=== PATIENT | male | born 1955 | race Caucasian/White ===

== ENCOUNTER → 2016-12-13 | Outpatient (CLI) | payer SELFPAY | END | disposition home or self-care (01) | LOC: PCVCIMAG 14:23 | PROVIDERS: ATTEND Nuclear Medicine Nuclear Cardiology | DX: I70.212 Atherosclerosis of native arteries of extremities with intermittent claudication, left leg (principal); I77.9 Disorder of arteries and arterioles, unspecified; I10 Essential (primary) hypertension; E78.00 Pure hypercholesterolemia, unspecified; E13.8 Other specified diabetes mellitus with unspecified complications; Z95.820 Peripheral vascular angioplasty status with implants and grafts | CPT/HCPCS: 93925; G0463 ==

== ENCOUNTER → 2016-12-16 | Outpatient (CLI) | payer SELFPAY ==
[~2016-12-16] MED LIST: ASPIRIN 325 MG TABLET ONE; CLOPIDOGREL BISULFATE 75 MG TABLET ONE; DIAZEPAM 10 MG TABLET. ONE; EPTIFIBATIDE BOLUS 2,000 MCG/ML 10ML VIAL. IV ONE; HEPARIN SODIUM 5,000 UNIT/ML VIAL for PCVC. ONE; IODIXANOL 270 MG/ML 100 ML VIAL. ONE; IV NORMAL SALINE 1000ML BAG 1,000 ML ONE; IV NORMAL SALINE 500ML BAG 0 ML ONE; LIDOCAINE 1% Multi-Dose 20 ML VIAL. ONE; MIDAZOLAM HCL/PF 2 MG/2 ML VIAL. ONE; fentaNYL PF VIAL 100 MCG/2 ML VIAL ONE; hydrALAZINE 20 MG/ML VIAL. ONE
--- NOTE | 2016-12-16 18:16 | PCVCINTER ---
EXAM: 1. AORTOGRAM AND BILATERAL LOWER EXTREMITY RUNOFF ANGIOGRAM 2. BILATERAL RENAL ANGIOGRAPHY 3. LEFT SUPERFICIAL FEMORAL ARTERY STENT PLACEMENT. 4. DRUG COATED BALLOON ANGIOPLASTY LEFT SUPERFICIAL FEMORAL ARTERY. 5. RIGHT EXTERNAL ILIAC ARTERY STENT PLACEMENT. 6. LEFT EXTERNAL ILIAC ARTERY STENT PLACEMENT. INDICATION: Peripheral arterial disease. Coronary artery disease. Nonhealing ulcer right lower extremity. Hypertension. Renal atherosclerosis. PROCEDURE: Procedure and risks of angiography intervention is appropriate including limb loss stroke and were discussed with the patient's family and consent obtained. The patient's right groin was prepped abnormal sterile fashion. IV conscious sedation was used to procedure with appropriate monitoring for 90 minutes. Ultrasound was used to interrogate the right groin and showed the right common femoral artery to be patent. A permanent spot film was obtained. Under ultrasound guidance access into the right common femoral artery was obtained and a 5 Ecuadorean sheath was placed. Through this a 5 Ecuadorean flush catheter was placed into the abdominal aorta at the level of the renal arteries and AP aortogram was performed. Catheter was positioned at the aortic bifurcation and both oblique views of the pelvis were obtained. Catheter was positioned into the right external iliac artery and right leg runoff angiography was performed. Catheter was exchanged for a visceral catheter was placed into the right renal arteries and right renal angiograms obtained. Catheter was placed into the the left renal arteries and left renal angiograms were obtained. Catheter was advanced to the level of the left external iliac artery and left leg runoff angiography was obtained. Patient was given 4500 units of heparin. Stent placement across the areas of high-grade stenosis in the right external iliac artery was carried out with a 8 x 30 Smart control stent with subsequent dilatation to 7 mm mm. Stent placement across the areas of high-grade stenosis in the left external iliac artery was carried out with a 8 x 40 Smart control stent with subsequent dilatation to 7.0 mm. A 6 Ecuadorean crossover sheath was placed via the right groin to the level of the left common femoral artery. Area of occlusion in the left superficial femoral artery was carefully crossed with a wire and an outback catheter. Stent placement across the areas of high-grade stenosis in the left superficial femoral was carried out with a 6 x 100 Smart control stent with subsequent dilatation to 5.0 mm. Following this drug coated balloon angioplasty of the left superficial femoral was carried out with a [employer] catheter. Follow-up angiogram was performed. Catheters and wires removed. Sheath was removed and hemostasis obtained using the Exoseal device. No immediate complications. FINDINGS: Aortogram: There is one right and one left renal artery. Moderate plaque infrarenal abdominal aorta without significant stenosis. Pelvis: Mild plaque right and left common iliac arteries without significant stenosis. The right and left internal iliac arteries are patent at their origins. 90% stenosis proximal right external iliac artery. 90% stenosis mid left external iliac artery. Right renal artery: Mild plaque proximal vessel does not cause significant stenosis. No branch vessel stenosis. Left renal artery: Mild plaque proximal vessel does not cause significant stenosis. No branch vessel stenosis. Right leg: Common femoral and profunda femoral arteries are patent. Superficial femoral artery including the stent throughout the mid vessel maintaining good patency. Popliteal artery is patent. Three-vessel runoff into the foot. Left leg: Common femoral and profunda femoral arteries are patent. Mild stenosis proximal superficial femoral artery. Occlusion throughout the mid superficial femoral artery. Refilling of the distal SFA. Popliteal artery is patent. Three-vessel runoff into the foot. Right external iliac artery: Following procedure as above vessel shows good patency. Left external iliac artery: Following procedure as above vessel shows good patency. Left superficial femoral artery: Following procedure as above vessel shows good patency. IMPRESSION: High-grade stenosis in the right and left external iliac arteries were treated with stent placement with good patency restored. Occlusion throughout the mid left superficial femoral artery was treated with stent placement and drug coated balloon angioplasty with good patency restored. follow up LOC:[place] [id number]
== END | disposition home or self-care (01) ==
LOC: PCVCINTER 09:15
PROVIDERS: ATTEND Nuclear Medicine Nuclear Cardiology
DX: I70.203 Unspecified atherosclerosis of native arteries of extremities, bilateral legs (principal); I25.10 Atherosclerotic heart disease of native coronary artery without angina pectoris; I10 Essential (primary) hypertension; I70.1 Atherosclerosis of renal artery
CPT/HCPCS: 36252; 37221; 37226; 75716; 76937; C1725; C1751; C1757; C1760; C1769; C1876; C1887; C1894; C2623; C2628; J0690; J1327; J1644; J2250; J3010; J7030; Q9966; 99152; 99153; J0360; J7040